=== PATIENT | female | born 1985 | race Caucasian/White ===

== ENCOUNTER 2019-03-01 20:46 | Emergency (ER) | payer MEDICAID, OTHER ==
[~2019-03-01] VITALS: Ht 162.6 cm; Wt 135.2 kg
--- NOTE | 2019-03-01 21:31 | ED Lower Extremity ---
General Chief Complaint: Lower Extremity Stated Complaint: RT HIP PAIN Nursing Triage Note: pt states pain to right hip around waist area for 2 days, no known injury Nursing Sepsis Screen: No Definite Risk Source: patient, RN notes reviewed Exam Limitations: no limitations History of Present Illness Date Seen by Provider: Mar 01, 2019 Time Seen by Provider: 21:30 Initial Comments Patient presents c/ c/o right worsening "hip" pain x 2 days. No known injury, or trauma. Worse c/ movement, standing, &/or weight bearing. Denies any symptoms. Denies any previous similar problems. Onset: other (x 2 days) Severity: severe Pain/Injury Location: right hip (actually points more in the area of her right SI joint.) Method of Injury: unknown Modifying Factors: Worse With Movement; Improves With Rest Allergies and Home Medications Allergies Coded Allergies: No Known Drug Allergies (Unverified , 03/01/19) Patient Home Medication List Home Medication List Reviewed: Yes Review of Systems Constitutional: see HPI : No Musculoskeletal: see HPI, other (right SI joint pain) All Other Systems Reviewed Negative Unless Noted: Yes (Negative excepted noted.) Past Eduswwg-Srnkie-Egycqi Hx Patient Social History Alcohol Use: Denies Use Recreational Drug Use: No Smoking Status: Never a Smoker 2nd Hand Smoke Exposure: No Recent Foreign Travel: No Contact w/Someone Who Travel: No Recent Infectious Disease Expo: No Recent Hopitalizations: No Physical Abuse: No Sexual Abuse: No Mistreated: No Fear: No Seasonal Allergies Seasonal Allergies: No Past Medical History Surgeries: No Respiratory: No Cardiac: No Neurological: No Genitourinary: No Gastrointestinal: No Musculoskeletal: No Endocrine: No HEENT: No Cancer: No Psychosocial: No Integumentary: No Blood Disorders: No Physical Exam Vital Signs Vital Signs - First Documented 03/01/19 21:23 Temp 98.0 Pulse 90 Resp 15 B/P (MAP) 161/71 (101) Pulse Ox 99 O2 Delivery Room Air Capillary Refill : Less Than 3 Seconds Height, Weight, BMI Height: 5'4.00" Weight: 298lbs. oz. 135.712347lf; BMI Method:Stated General Appearance: WD/WN, mild distress, obese Cardiovascular: regular rate, rhythm Respiratory: no respiratory distress Back: other ((+) palpable right SI joint pain) Neurologic/Psychiatric: no motor/sensory deficits, alert, oriented x 3, other (appears uncomfortable) Skin: warm/dry; No rash Progress/Results/Core Measures Results/Orders Lab Results Laboratory Tests Test 03/01/19 21:49 Range/Units Urine Color YELLOW Urine Clarity CLEAR Urine pH 6.5 5-9 Urine Specific [place] <=1.005 1.016-1.022 Urine Protein NEGATIVE NEGATIVE Urine Glucose (UA) NEGATIVE NEGATIVE Urine Ketones NEGATIVE NEGATIVE Urine Nitrite NEGATIVE NEGATIVE Urine Bilirubin NEGATIVE NEGATIVE Urine Urobilinogen 0.2 NORMAL MG/DL Urine Leukocyte Esterase NEGATIVE NEGATIVE Urine RBC (Auto) NEGATIVE NEGATIVE Urine RBC RARE /HPF Urine WBC 0-2 /HPF Urine Squamous Epithelial Cells 2-5 /HPF Urine Crystals NONE /LPF Urine Bacteria MODERATE H /HPF Urine Casts NONE /LPF Urine Mucus NEGATIVE /LPF Urine Culture Indicated YES Urine Test NEGATIVE NEGATIVE Urine Opiates Screen POSITIVE H NEGATIVE Urine Oxycodone Screen NEGATIVE NEGATIVE Urine Methadone Screen NEGATIVE NEGATIVE Urine Propoxyphene Screen NEGATIVE NEGATIVE Urine Barbiturates Screen NEGATIVE NEGATIVE Ur Tricyclic Antidepressants Screen NEGATIVE NEGATIVE Urine Phencyclidine Screen NEGATIVE NEGATIVE Urine Amphetamines Screen NEGATIVE NEGATIVE Urine Methamphetamines Screen NEGATIVE NEGATIVE Urine Benzodiazepines Screen NEGATIVE NEGATIVE Urine Cocaine Screen NEGATIVE NEGATIVE Urine Cannabinoids Screen NEGATIVE NEGATIVE My Orders Orders - WILBERT ESTRELLA DO Drug Screen Stat (Urine) (03/01/19 21:32) Ua Culture If Indicated (03/01/19 21:32) Hcg,Qualitative Urine (03/01/19 21:32) Urine Culture (03/01/19 21:49) Ketorolac Injection (Toradol Injection) (03/01/19 22:15) Ct Abdomen/Pelvis Wo (03/01/19 22:26) Dexamethasone Injection (Decadron Inject (03/01/19 23:45) Cephalexin Capsule (Keflex Capsule) (03/01/19 23:45) Hydrocodone/Apap 10/325 Tablet (Lortab 1 (03/01/19 23:45) Medications Given in ED Current Medications Medications Dose Ordered Sig/[place] Route Start Time Stop Time Status Last Admin Dose Admin Ketorolac Tromethamine 15 mg ONCE ONCE IM 03/01/19 22:15 03/01/19 22:17 DC 03/01/19 22:24 15 MG Vital Signs/I&O 03/01/19 21:23 Temp 98.0 Pulse 90 Resp 15 B/P (MAP) 161/71 (101) Pulse Ox 99 O2 Delivery Room Air Blood Pressure Mean: 101 Departure Impression Primary Impression: Right low back pain Additional Impression: UTI (urinary tract infection) Disposition: 01 HOME, SELF-CARE Condition: Stable Departure-Patient Inst. Decision time for Depature: 23:40 Referrals: GEOVANI AREVALO MD (PCP) Primary Care Physician Patient Instructions: Low Back Pain (DC), Urinary Tract Infection, Adult (DC) Add. Discharge Instructions: All discharge instructions reviewed with patient and/or family. Voiced understan lj. Scripts Diclofenac Sodium (Diclofenac Sodium) 50 Mg Tablet.dr 50 MG PO Q8H PRN for back/flank pain, #30 TAB 0 Refills Prov: WILBERT ESTRELLA DO 03/01/19 Cefuroxime Axetil (Cefuroxime) 250 Mg Tablet 250 MG PO BID for UTI, #20 TAB 0 Refills Prov: WILBERT ESTRELLA DO 03/01/19 Work/School Note: Work Release Form Date Seen in the Emergency Department: Mar 01, 2019 Return to Work: Mar 03, 2019 Restrictions: No Restrictions WILBERT ESTRELLA DO Mar 01, 2019 21:31
[2019-03-01 22:03] LABS: CLARITY,URINE CLEAR; COLOR,URINE YELLOW; GLUCOSE, URINE (UA) NEGATIVE (NEGATIVE); KETONES,URINE NEGATIVE (NEGATIVE); NITRITE,URINE NEGATIVE (NEGATIVE); PH,URINE 6.5 (5-9); PROTEIN,URINE NEGATIVE (NEGATIVE)
[2019-03-01 22:04] LABS: BACTERIA,URINE MODERATE /HPF; BILIRUBIN,URINE NEGATIVE (NEGATIVE); LEUKOCYTE ESTERASE ,URINE NEGATIVE (NEGATIVE); RBC,URINE RARE /HPF; UROBILINOGEN,URINE 0.2 MG/DL (NORMAL); WBC,URINE 0-2 /HPF
[2019-03-01 22:09] LABS: AMPHETAMINE SCREEN, URINE NEGATIVE (NEGATIVE); BARBITURATE SCREEN URINE NEGATIVE (NEGATIVE); BENZODIAZEPINES SCREEN URINE NEGATIVE (NEGATIVE); CANNABINOID SCREEN, URINE NEGATIVE (NEGATIVE); COCAINE SCREEN URINE NEGATIVE (NEGATIVE); HCG,QUALITATIVE URINE NEGATIVE (NEGATIVE); METHADONE STAT NEGATIVE (NEGATIVE); METHAMPHETAMINE SCREEN URINE S NEGATIVE (NEGATIVE); OPIATE SCREEN URINE POSITIVE (NEGATIVE); OXYCODONE STAT NEGATIVE (NEGATIVE); PROPOXYPHENE STAT NEGATIVE (NEGATIVE); TRICYCLIC ANTIDEPRESSANTS SCRE NEGATIVE (NEGATIVE)
[2019-03-01] MEDS ORDERED: KETOROLAC 30 MG/ML VIAL IM ONE (22:15)
[2019-03-01] MEDS ORDERED: CEFU250T80 PO (23:42)
[2019-03-01] MEDS ORDERED: DICL50TA6 PO (23:42)
[2019-03-01] MEDS ORDERED: CEPHALEXIN 250 MG (KEFLEX) CAP PO ONE (23:45)
[2019-03-01] MEDS ORDERED: DEXAMETHASONE 10 MG/ML (DECADRON) 1 ML VIAL IM ONE (23:45)
[2019-03-01] MEDS ORDERED: HYDROcodone/APAP 10 MG/325 MG (LORTAB) TAB PO ONE (23:45)
[2019-03-01 23:59] VITALS: BP 161/83
--- NOTE | 2019-03-02 07:58 | Diagnostic Imaging Report ---
PROCEDURE: CT abdomen and pelvis without contrast. TECHNIQUE: Multiple contiguous axial images were obtained through the abdomen and pelvis without the use of intravenous contrast. Auto Exposure Controls were utilized during the CT exam to meet ALARA standards for radiation dose reduction. INDICATION: Right-sided pain extending into the right hip. I have no priors Uterus, adnexa and urinary bladder unremarkable. There is no appendicitis or diverticulitis. There is a small fatty umbilical hernia without herniated viscus or inflammation. The unopacified liver, spleen, adrenals, pancreas, gallbladder and bile ducts unremarkable. The aorta is nonaneurysmal. No ascites, abscess, hematoma or acute fluid collection. No inflammatory process. The osseous structures and the lung bases were nonacute. IMPRESSION: Small fatty umbilical hernia. No adnexal lesion, appendicitis or urinary tract obstruction. No acute appearing abnormality. Dictated by: Dictated on workstation # [id number]
== END 2019-03-02 00:09 | disposition home or self-care (01) ==
LOC: ER FS 20:48
DX: M54.5 Low back pain (principal); N39.0 Urinary tract infection, site not specified
CPT/HCPCS: 74176; 80306; 81000; 84703; 87088; 96372

== ENCOUNTER 2019-07-23 12:06 | Emergency (ER) | payer MEDICAID ==
[~2019-07-23] VITALS: Ht 162.5 cm; Wt 131.3 kg
[~2019-07-23 12:06] MED LIST: CEFU250T80 PO; DICL50TA6 PO
[2019-07-23] MEDS ORDERED: RT-ALBUTEROL SULF 2.5 MG/3 ML PRE-MIX VIAL INH ONE (12:45)
--- NOTE | 2019-07-23 12:46 | ED Cough/URI ---
General Chief Complaint: Cough/Cold/Flu Symptoms Stated Complaint: WEAKNESS,SOB,SORE THROAT History of Present Illness Date Seen by Provider: Jul 23, 2019 Time Seen by Provider: 12:41 Initial Comments 34-year-old female started in last evening with congestion some loss of her voice frequent easily triggered dry cough mild sore throat there's been no vomiting or diarrhea she doesn't know whether she's had any fever no known exposure to illness denies history of asthma or any chronic lung disease does not use inhalers Allergies and Home Medications Allergies Coded Allergies: No Known Drug Allergies (Unverified , 03/01/19) Home Medications Cefuroxime Axetil 250 Mg Tablet, 250 MG PO BID Prescribed by: WILBERT ESTRELLA on 03/01/192341 Diclofenac Sodium 50 Mg Tablet.dr, 50 MG PO Q8H PRN for back/flank pain Prescribed by: WILBERT ESTRELLA on 03/01/19 234 Patient Home Medication List Home Medication List Reviewed: Yes Review of Systems Review of Systems Constitutional: dizziness EENTM: hoarseness, throat pain (slight after coughing) Respiratory: cough, dyspnea on exertion Cardiovascular: No chest pain ()only slight after cough)), No syncope Gastrointestinal: No abdominal pain, No vomiting Genitourinary: no symptoms reported Musculoskeletal: no symptoms reported Past Qkpseyb-Rroxzy-Mwqjxk Hx Patient Social History 2nd Hand Smoke Exposure: No Recent Hopitalizations: No Seasonal Allergies Seasonal Allergies: No Past Medical History Surgeries: No Respiratory: No Cardiac: No Neurological: No Genitourinary: No Gastrointestinal: No Musculoskeletal: No Endocrine: No HEENT: No Cancer: No Psychosocial: No Integumentary: No Blood Disorders: No Physical Exam Vital Signs - First Documented 07/23/19 12:14 O2 Delivery Room Air Capillary Refill : Height: 5'4.00" Weight: 298lbs. oz. 135.408094lm; BMI Method:Stated General Appearance: no apparent distress Eyes: Bilateral Eye PERRL, Bilateral Eye EOMI HEENT: TMs normal, pharynx normal Neck: supple Respiratory: lungs clear, normal breath sounds, no respiratory distress, other (does have frequent dry cough and hoarse voice) Cardiovascular: normal peripheral pulses Gastrointestinal: normal bowel sounds, non tender, soft Extremities: no pedal edema, no calf tenderness Progress/Results/Core Measures Suspected Sepsis SIRS Temperature: Pulse: Respiratory Rate: Blood Pressure / Mean: Results/Orders My Orders Orders - JOAQUIM KOCH MD Albuterol Pre-Mix Nebs (Rt) (Proventil (07/23/19 12:45) Svn Small Volume Nebulizer (07/23/19 12:38) Chest Pa/Lat (2 View) (07/23/19 12:38) Vital Signs/I&O 07/23/19 12:14 O2 Delivery Room Air Capillary Refill : Progress Note : Progress Note CXR - read as normal Departure Impression Primary Impression: Upper respiratory infection Qualified Codes: J06.9 - Acute upper respiratory infection, unspecified Additional Impression: Bronchitis Disposition: HOME, SELF-CARE Condition: Stable Departure-Patient Inst. Decision time for Depature: 13:03 Referrals: GEOVANI AREVALO MD (PCP/Family) Primary Care Physician Patient Instructions: Viral Upper Respiratory Infection, Adult (DC), Acute Bron chitis, Adult (DC) Scripts Albuterol Sulfate (VENTOLIN HFA) 1 Puff Puff 2 PUFF INH Q4H for Dyspean, #1 PUFF 1 PUFF = 90 MCG Prov: JOAQUIM KOCH MD 07/23/19 Prednisone (Prednisone) 20 Mg Tab 40 MG PO DAILY, #6 TAB 0 Refills Prov: JOAQUIM KOCH MD 07/23/19 Azithromycin (Azithromycin) 250 Mg Tablet 250 MG PO UD, #6 TAB TAKE 2 TABLETS ON DAY ONE THEN TAKE 1 TABLET DAILY FOR FOUR MORE DAYS Prov: JOAQUIM KOCH MD 07/23/19 Benzonatate (Tessalon Perle) 100 Mg Capsule 100 MG PO TID, #20 CAP Prov: JOAQUIM KOCH MD 07/23/19 JOAQUIM KOCH MD Jul 23, 2019 12:46 POS
--- NOTE | 2019-07-23 12:56 | Diagnostic Imaging Report ---
CHEST PA/LAT (2 VIEW) Indication: Shortness of breath Comparison: None available. Findings: No pulmonary mass or consolidation. No pleural effusion or pneumothorax. Normal heart size and mediastinal contours. Impression: No acute cardiopulmonary process. Dictated by: Dictated on workstation # [id number]
[2019-07-23] MEDS ORDERED: BENZ-13 PO (13:07)
[2019-07-23] MEDS ORDERED: AZIT250T12 PO (13:07)
[2019-07-23] MEDS ORDERED: PRD20T PO (13:07)
[2019-07-23] MEDS ORDERED: RT-ALBUINH INH (13:07)
[2019-07-23 13:23] VITALS: BP 140/72
== END 2019-07-23 13:23 | disposition home or self-care (01) ==
LOC: EDUNIT# 12:06 → ER FS 12:07
DX: J06.9 Acute upper respiratory infection, unspecified (principal); J40 Bronchitis, not specified as acute or chronic
CPT/HCPCS: 71046; 94640

== ENCOUNTER → 2022-08-27 | Outpatient (CLI) | payer MEDICAID ==
[~2022-08-27] MED LIST changes: +AZIT250T12 PO; +BENZ-13 PO; +PRD20T PO; +RT-ALBUINH INH
--- NOTE | 2022-08-27 16:40 | Diagnostic Imaging Report ---
EXAMINATION: Left fingers 2 or more views HISTORY: Hand injury COMPARISON: None available. FINDINGS: Dedicated views including the right third, fourth and fifth fingers show normal alignment. No fracture. Joint spaces are normal. IMPRESSION: 1. No fracture seen in the right third, fourth and fifth fingers. Dictated by: Dictated on workstation # [id number]
== END ==
LOC: RAD FS 13:20
DX: S69.91XA Unspecified injury of right wrist, hand and finger(s), initial encounter (principal); X58.XXXA Exposure to other specified factors, initial encounter
CPT/HCPCS: 73140